=== PATIENT | male | born 1960 | race African-American/Black ===

== ENCOUNTER 2016-12-05 11:32 | Emergency (ER) | payer MEDICAID ==
[~2016-12-05] VITALS: Ht 165.1 cm; Wt 68.0 kg
[2016-12-05] MEDS ORDERED: LISI1TAB9 PO (11:35)
[2016-12-05] MEDS ORDERED: ASPI81 PO (11:35)
[2016-12-05] MEDS ORDERED: AMLO-511 PO (11:35)
[2016-12-05] MEDS ORDERED: ASPIRIN 81 MG CHEWABLE TABLET PO ONE (12:00)
[2016-12-05 12:35] LABS: BASOPHILS % (AUTO) 0.7 % (0.0-2.0); EOSINOPHILS % (AUTO) 0.7 % (1.0-6.0); LYMPHOCYTES # (AUTO) 1.8 K/uL (1.0-4.8); LYMPHOCYTES % (AUTO) 40.5 % (22.0-44.0); MEAN CORPUSCULAR HEMOGLOBIN 28.4 pg (26.0-34.0); MEAN CORPUSCULAR HGB CONC 32.5 G/dL (31.0-37.0); MEAN CORPUSCULAR VOLUME 87 fL (80-100); MONOCYTES # (AUTO) 0.6 K/uL (0.1-1.0); NEUTROPHILS % (AUTO) 44.1 % (40.0-70.0); PLATELET COUNT (AUTO) 202 K/uL (150-450); RED BLOOD CELL COUNT(AUTO) 5.26 MIL/uL (4.50-5.90); RED CELL DISTRIBUTION WIDTH 12.3 % (11.5-14.5); WHITE BLOOD COUNT (AUTO) 4.4 K/uL (4.5-11.0)
[2016-12-05 12:43] LABS: CALCIUM, TOTAL 9.3 mg/dL (8.8-10.5); CREATININE 1.5 mg/dL (0.60-1.30); POTASSIUM 4.2 mmol/L (3.5-5.1)
[2016-12-05 13:08] LABS: BILIRUBIN,TOTAL 0.6 mg/dL (0.1-1.0); CREATINE KINASE MB 6.3 ng/mL (0-5); TOTAL PROTEIN, SERUM 9.1 g/dL (6.4-8.2)
[2016-12-05 13:46] VITALS: BP 129/85
== END 2016-12-05 13:53 | disposition home or self-care (01) ==
LOC: EMS 11:34
DX: R07.89 Other chest pain (principal); I10 Essential (primary) hypertension; Z79.82 Long term (current) use of aspirin
CPT/HCPCS: 93005; 99285

== ENCOUNTER 2016-12-05 23:08 | Emergency (ER) | payer MEDICAID ==
[~2016-12-05] VITALS: Ht 165.1 cm; Wt 68.2 kg
[~2016-12-05 23:08] MED LIST: AMLO-511 PO; ASPI81 PO; LISI1TAB9 PO
[2016-12-05 23:52] LABS: BASOPHILS % (AUTO) 0.7 % (0.0-2.0); EOSINOPHILS % (AUTO) 2.5 % (1.0-6.0); HEMATOCRIT 43.8 % (41-53); HEMOGLOBIN 14.1 g/dL (13.5-17.5); LYMPHOCYTES # (AUTO) 2.5 K/uL (1.0-4.8); MEAN CORPUSCULAR HEMOGLOBIN 28.4 pg (26.0-34.0); MEAN CORPUSCULAR HGB CONC 32.3 G/dL (31.0-37.0); MEAN CORPUSCULAR VOLUME 88 fL (80-100); MONOCYTES % (AUTO) 15.9 % (2.0-9.0); NEUTROPHILS # (AUTO) 2.4 K/uL (1.8-7.7); NEUTROPHILS % (AUTO) 38.9 % (40.0-70.0); PLATELET COUNT (AUTO) 222 K/uL (150-450); RED BLOOD CELL COUNT(AUTO) 4.98 MIL/uL (4.50-5.90); RED CELL DISTRIBUTION WIDTH 12.3 % (11.5-14.5); WHITE BLOOD COUNT (AUTO) 6.1 K/uL (4.5-11.0)
[2016-12-06 00:02] VITALS: BP 128/83
[2016-12-06 00:04] LABS: CALCIUM, TOTAL 9.1 mg/dL (8.8-10.5); CREATININE 1.49 mg/dL (0.60-1.30); POTASSIUM 4.3 mmol/L (3.5-5.1)
[2016-12-06 00:10] LABS: ALBUMIN 3.8 g/dL (3.4-5.0); BILIRUBIN,TOTAL 0.4 mg/dL (0.1-1.0); TOTAL PROTEIN, SERUM 8.8 g/dL (6.4-8.2)
== END 2016-12-06 00:44 | disposition home or self-care (01) ==
LOC: EMS 23:09
DX: R07.89 Other chest pain (principal); R20.9 Unspecified disturbances of skin sensation; I10 Essential (primary) hypertension; Z79.82 Long term (current) use of aspirin
CPT/HCPCS: 85379; 93005; 99285

== ENCOUNTER 2019-06-18 12:09 | Emergency (ER) | payer SELFPAY ==
[~2019-06-18] VITALS: Ht 167.6 cm; Wt 54.5 kg
[~2019-06-18 12:09] MED LIST changes: -AMLO-511 PO; +AMLO5TAB9 PO
[2019-06-18 14:01] LABS: BASOPHILS % (AUTO) 0.5 % (0.0-2.0); EOSINOPHILS % (AUTO) 0.4 % (1.0-6.0); HEMATOCRIT 40.2 % (41-53); HEMOGLOBIN 13.4 g/dL (13.5-17.5); LYMPHOCYTES % (AUTO) 23.4 % (22.0-44.0); MEAN CORPUSCULAR HEMOGLOBIN 30.8 pg (26.0-34.0); MEAN CORPUSCULAR HGB CONC 33.3 G/dL (31.0-37.0); MEAN CORPUSCULAR VOLUME 93 fL (80-100); MONOCYTES # (AUTO) 0.7 K/uL (0.1-1.0); NEUTROPHILS # (AUTO) 2.5 K/uL (1.8-7.7); NEUTROPHILS % (AUTO) 59.7 % (40.0-70.0); PLATELET COUNT (AUTO) 166 K/uL (150-450); RED BLOOD CELL COUNT(AUTO) 4.34 MIL/uL (4.50-5.90); RED CELL DISTRIBUTION WIDTH 12.6 % (11.5-14.5)
[2019-06-18 14:11] LABS: AMPHET/METH SCREEN,URINE NEGATIVE (NEGATIVE); BARBITURATE SCREEN, URINE NEGATIVE (NEGATIVE); BENZODIAZEPINES SCREEN,URINE NEGATIVE (NEGATIVE); CANNABINOID SCREEN,URINE NEGATIVE (NEGATIVE); COCAINE SCREEN,URINE NEGATIVE (NEGATIVE); METHADONE SCREEN, URINE NEGATIVE (NEGATIVE); OPIATE SCREEN,URINE NEGATIVE (NEGATIVE)
[2019-06-18 14:12] LABS: PHENCYCLIDINE SCREEN,URINE NEGATIVE (NEGATIVE)
[2019-06-18 14:17] LABS: CALCIUM, TOTAL 8.5 mg/dL (8.8-10.5); CREATININE 1.76 mg/dL (0.60-1.30); POTASSIUM 3.8 mmol/L (3.5-5.1)
[2019-06-18 14:49] LABS: ALBUMIN 3.1 g/dL (3.4-5.0); BILIRUBIN,TOTAL 1.1 mg/dL (0.1-1.0); TOTAL PROTEIN, SERUM 8.3 g/dL (6.4-8.2)
[2019-06-18 14:54] LABS: GLUCOSE,POINT OF CARE 102 MG/DL (70-110)
[2019-06-18 15:02] VITALS: BP 141/92
== END 2019-06-18 15:16 | disposition home or self-care (01) ==
LOC: EMS 12:10
DX: R55 Syncope and collapse (principal); E86.0 Dehydration; F10.129 Alcohol abuse with intoxication, unspecified; K70.30 Alcoholic cirrhosis of liver without ascites; I10 Essential (primary) hypertension; Z79.82 Long term (current) use of aspirin; Z79.899 Other long term (current) drug therapy
CPT/HCPCS: 36415; 80053; 80307; 82550; 82962; 84484; 85025; 93005; 99285; G0480

== ENCOUNTER 2021-03-21 09:37 | Emergency (ER) | payer MEDICAID, OTHER ==
[~2021-03-21] VITALS: Ht 167.6 cm; Wt 59.1 kg
[~2021-03-21 09:37] MED LIST changes: +AMLO-257 PO; -AMLO5TAB9 PO; +ASPI-1450 PO; -ASPI81 PO; +ATOR40TA28 PO; -LISI1TAB9 PO
[2021-03-21] MEDS ORDERED: SODIUM CHLORIDE 0.9% 1,000 ML IV ONE (11:30)
[2021-03-21] MEDS ORDERED: LORazepam 2 MG/ML VIAL IVP ONE (12:15)
[2021-03-21 12:27] LABS: BASOPHILS % (AUTO) 0.6 % (0.0-2.0); EOSINOPHILS % (AUTO) 0.1 % (1.0-6.0); HEMATOCRIT 36.1 % (41-53); HEMOGLOBIN 11.5 g/dL (13.5-17.5); LYMPHOCYTES # (AUTO) 0.5 K/uL (1.0-4.8); LYMPHOCYTES % (AUTO) 9.2 % (22.0-44.0); MEAN CORPUSCULAR HEMOGLOBIN 31.6 pg (26.0-34.0); MEAN CORPUSCULAR HGB CONC 31.9 G/dL (31.0-37.0); MEAN CORPUSCULAR VOLUME 99 fL (80-100); MONOCYTES # (AUTO) 0.6 K/uL (0.1-1.0); MONOCYTES % (AUTO) 10.6 % (2.0-9.0); NEUTROPHILS # (AUTO) 4.5 K/uL (1.8-7.7); NEUTROPHILS % (AUTO) 79.5 % (40.0-70.0); PLATELET COUNT (AUTO) 107 K/uL (150-450); RED BLOOD CELL COUNT(AUTO) 3.66 MIL/uL (4.50-5.90); RED CELL DISTRIBUTION WIDTH 13.8 % (11.5-14.5)
[2021-03-21 12:35] LABS: ANION GAP 20 mmol/L (8-16); CALCIUM, TOTAL 8.5 mg/dL (8.8-10.5); CARBON DIOXIDE 19 mmol/L (22-29); CHLORIDE 104 mmol/L (98-107); CREATININE 1.33 mg/dL (0.60-1.30); GLOMERULAR FILTR. RATE CALC > 60 mL/min (>60); GLUCOSE,RANDOM 67 mg/dL (70-110); POTASSIUM 4.3 mmol/L (3.5-5.1); SODIUM SERUM 143 mmol/L (136-145); UREA NITROGEN, BLOOD 11 mg/dL (7-18)
[2021-03-21 12:41] LABS: ALANINE AMINOTRANSFERASE 69 U/L (12-78); ALBUMIN 2.3 g/dL (3.4-5.0); ALKALINE PHOSPHATASE 132 U/L (46-116); ASPARTATE AMINOTRANSFERASE 219 U/L (15-37); BILIRUBIN,TOTAL 1.7 mg/dL (0.1-1.0); TOTAL PROTEIN, SERUM 8.4 g/dL (6.4-8.2)
[2021-03-21 13:38] VITALS: BP 92/39
== END 2021-03-21 13:56 | disposition home or self-care (01) ==
LOC: EMS 09:49
DX: K70.10 Alcoholic hepatitis without ascites (principal); F10.239 Alcohol dependence with withdrawal, unspecified; I10 Essential (primary) hypertension
CPT/HCPCS: 36415; 80053; 84484; 85025; 93005; 96361; 96374; 99284; G0480; J2060; J7030

== ENCOUNTER 2021-11-09 19:02 | Emergency (ER) | payer OTHER ==
[~2021-11-09] VITALS: Ht 167.6 cm; Wt 59.1 kg
[2021-11-09] MEDS ORDERED: FURO20 PO (19:23)
[2021-11-09] MEDS ORDERED: LISI-894 PO ×2 (19:23→20:16)
[2021-11-09 19:56] LABS: EOSINOPHILS % (AUTO) 0.6 % (1.0-6.0); HEMOGLOBIN 11.6 g/dL (13.5-17.5); LYMPHOCYTES # (AUTO) 1.3 K/uL (1.0-4.8); LYMPHOCYTES % (AUTO) 32.7 % (22.0-44.0); MEAN CORPUSCULAR HEMOGLOBIN 30.5 pg (26.0-34.0); MEAN CORPUSCULAR HGB CONC 33.2 G/dL (31.0-37.0); MEAN CORPUSCULAR VOLUME 92 fL (80-100); MONOCYTES # (AUTO) 0.4 K/uL (0.1-1.0); MONOCYTES % (AUTO) 11.2 % (2.0-9.0); NEUTROPHILS # (AUTO) 2.2 K/uL (1.8-7.7); NEUTROPHILS % (AUTO) 54.5 % (40.0-70.0); PLATELET COUNT (AUTO) 225 K/uL (150-450); RED CELL DISTRIBUTION WIDTH 13.4 % (11.5-14.5)
[2021-11-09 19:59] LABS: ANION GAP 11 mmol/L (8-16); CALCIUM, TOTAL 8.8 mg/dL (8.8-10.5); CARBON DIOXIDE 23 mmol/L (22-29); CHLORIDE 100 mmol/L (98-107); CREATININE 1.24 mg/dL (0.60-1.30); GLOMERULAR FILTR. RATE CALC > 60 mL/min (>60); GLUCOSE,RANDOM 99 mg/dL (70-110); POTASSIUM 3.9 mmol/L (3.5-5.1); SODIUM SERUM 134 mmol/L (136-145); UREA NITROGEN, BLOOD 18 mg/dL (7-18)
[2021-11-09 20:00] LABS: INR 1.3 (0.9-1.1); PROTHROMBIN TIME 13.8 SEC (9.4-11.6)
[2021-11-09 20:05] LABS: ALANINE AMINOTRANSFERASE 28 U/L (12-78); ALBUMIN 1.9 g/dL (3.4-5.0); ALKALINE PHOSPHATASE 68 U/L (46-116); ASPARTATE AMINOTRANSFERASE 80 U/L (15-37); BILIRUBIN,TOTAL 1.6 mg/dL (0.1-1.0); LIPASE 329 U/L (73-393)
[2021-11-09 20:10] VITALS: BP 133/88
[2021-11-09] MEDS ORDERED: SPIR-37 PO (20:16)
== END 2021-11-09 20:33 | disposition home or self-care (01) ==
LOC: EMS 19:08
DX: K70.31 Alcoholic cirrhosis of liver with ascites (principal); E78.00 Pure hypercholesterolemia, unspecified; I10 Essential (primary) hypertension; F11.90 Opioid use, unspecified, uncomplicated; Z86.73 Personal history of transient ischemic attack (TIA), and cerebral infarction without residual deficits; Z79.899 Other long term (current) drug therapy; Z79.82 Long term (current) use of aspirin
CPT/HCPCS: 36415; 71045; 80053; 83690; 85025; 85610; 93005; 99285; G0480

== ENCOUNTER 2025-07-24 17:09 | Emergency (ER) | payer OTHER ==
[~2025-07-24] VITALS: Ht 167.6 cm; Wt 56.8 kg
[~2025-07-24 17:09] MED LIST changes: -AMLO-257 PO; -ASPI-1450 PO; -ATOR40TA28 PO; +FURO40TA6 PO; +LISI-894 PO; +OMEP-148 PO; +SPIR-37 PO
[2025-07-24 17:11] VITALS: TEMP 97.5
[2025-07-24 17:45] LABS: PLATELET COUNT (AUTO) 187 K/uL (150-450); RED BLOOD CELL COUNT(AUTO) 4.80 MIL/uL (4.50-5.90); RED CELL DISTRIBUTION WIDTH 13.5 % (11.5-14.5); WHITE BLOOD COUNT (AUTO) 2.6 K/uL (4.5-11.0)
[2025-07-24 17:48] LABS: CALCIUM, TOTAL 9.1 mg/dL (8.8-10.5); CREATININE 0.91 mg/dL (0.60-1.30); GLOMERULAR FILTR. RATE CALC > 60 mL/min (>60); GLUCOSE,RANDOM 113 mg/dL (70-110); SODIUM SERUM 132 mmol/L (136-145); UREA NITROGEN, BLOOD 13 mg/dL (7-18)
[2025-07-24 17:56] LABS: TROPONIN I-HIGH SENSITIVITY 5 ng/L (<76)
[2025-07-24 18:18] LABS: BAND NEUTROPHILS % (MANUAL) 8 % (0-5); EOSINOPHILS % (MANUAL) 1 % (1-6); LYMPHOCYTES % (MANUAL) 44 % (22-44); MONOCYTES % (MANUAL) 13 % (2-9); SEGMENTED NEUTROPHILS % 34 % (40-70)
[2025-07-24] MEDS ORDERED: CLON0.1T2 PO (22:34)
[2025-07-24 23:40] VITALS: BP 142/93; PULSE 69; RESP 18; O2SAT 98
== END 2025-07-24 23:50 | disposition home or self-care (01) ==
LOC: EMS 17:09
DX: I10 Essential (primary) hypertension (principal); F10.20 Alcohol dependence, uncomplicated; E78.00 Pure hypercholesterolemia, unspecified; F15.90 Other stimulant use, unspecified, uncomplicated; Z86.73 Personal history of transient ischemic attack (TIA), and cerebral infarction without residual deficits; Z79.899 Other long term (current) drug therapy
CPT/HCPCS: 71045; 80048; 84484; 85025; 93005; 99285; 36415-L1; 36415-TC